=== PATIENT | female | born 1965 | race Caucasian/White ===

== ENCOUNTER 2021-07-14 15:42 | Emergency (ER) | payer OTHER ==
[2021-07-14] MEDS ORDERED: BACTRIM DS TAB1 EACH PO (18:36)
[2021-07-14] MEDS ORDERED: OMNICEF 300 MG300 MG PO (18:36)
== END 2021-07-14 18:46 | disposition home or self-care (01) ==
LOC: ER1 15:42
DX: L03.011 Cellulitis of right finger (principal); Z88.0 Allergy status to penicillin
CPT/HCPCS: 10060; 99282